=== PATIENT | female | born 1980 | race Caucasian/White ===

== ENCOUNTER → 2023-09-16 11:30 | Outpatient (BNVA) | payer MEDICAID, SELFPAY | PROVIDERS: Visit Provider Obstetrics & Gynecology | DX: Z01.419 Encounter for gynecological examination (general) (routine) without abnormal findings (principal); N92.1 Excessive and frequent menstruation with irregular cycle | CPT/HCPCS: 80053; 84443; 85025; 87624 ==

== ENCOUNTER → 2023-10-02 10:08 | Outpatient (BNVA) | payer MEDICAID, SELFPAY | PROVIDERS: Visit Provider Obstetrics & Gynecology | DX: N92.0 Excessive and frequent menstruation with regular cycle (principal) | CPT/HCPCS: 76830 ==

== ENCOUNTER → 2023-10-20 08:44 | Outpatient (BNVA) | payer MEDICAID, SELFPAY | PROVIDERS: Visit Provider Obstetrics & Gynecology | DX: N93.9 Abnormal uterine and vaginal bleeding, unspecified (principal) | CPT/HCPCS: 81025; 88305 ==

== ENCOUNTER 2023-11-20 05:46 | Day surgery (SDC) | payer MEDICAID, SELFPAY ==
[2023-11-20] VITALS (10 sets, daily range): BP systolic 148–192; BP diastolic 88–104; PULSE 74–86; RESP 12–21; TEMP 36.2–36.5; O2SAT 92–98; BMI 31.8
--- NOTE | 2023-11-20 03:49 | W.PM.OPSFHP ---
Same Day Surgery H&P Indication for Procedure/HPI DATE OF PROCEDURE: November 20, 2023 CHIEF COMPLAINT/INDICATIONFOR SURGICAL PROCEDURE: 43 y.o. 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 h/o BTL began to have irregular, heavy bleeding August 2023 also with RODNEY II on cervical biopsy done for abnormal pap smear Medications/Allergies* Home Medications Medication Instructions Recorded Confirmed Type norethindrone 0.5 mg-ethinyl 1 tab PO DAILY 09/16/23 11/19/23 History estradiol 35 mcg tablet (Necon) Allergies/Adverse Reactions Allergy/AdvReac Type Severity Reaction Status Date / Time No Known Allergies Allergy Verified 11/19/23 11:30 Pertinent History/Comorbid Conditions* Family History (Updated 09/16/23 @ 09:30 by Wendy More LPN) Colon cancer Grandmother Hypertension Grandmother Mother Thyroid disease Mother Denies family history of Ovarian cancer Prostate cancer Diabetes Heart disease Breast cancer Uterine cancer Stroke Social History Smoking and tobacco/nicotine status: current every day tobacco/nicotine user Pertinent Exam Findings alert, oriented x 3, clear to auscultation bilaterally and regular rate & rhythm Pertinent Data Pelvic sono 10-02-23 normal uterus Endometrium 2.6 cm, heterogeneous Normal ovaries Recommendations Surgery/Procedure today Coding Level of Care Code Acute Code for Chg Fwd Time Spent (min) 20
--- NOTE | 2023-11-20 06:15 | W.PM.OPSUD ---
Surgery/Procedure H&P Update DATE OF PROCEDURE: November 20, 2023 DATE H&P PERFORMED: 11/04/23 H&P UPDATE INFORMATION: I have reviewed H&P completed within last 30 days, I have examined patient prior to procedure and No changes to prior documentation PREOP DIAGNOSIS: abnormal uterine bleeding; cervical dysplasia PLANNED PROCEDURE: Operation Date: 11/20/23 07:00 Proposed Procedures p Hysteroscopy Hysteroscopy w/ Endometrial Sampling 31580, 89234, N93.9, N87.9(Not Applicable) - Sanjeev Ramirez MD s Poylpectomy(Not Applicable) - Sanjeev Ramirez MD s Cervical Conization(Not Applicable) - Sanjeev Ramirez MD
[2023-11-20] MEDS: sodium chloride 0.9% 1,000 ML 30 ML IV (06:28)
[2023-11-20 06:34] LABS: OR HCG Qualitative Urine Negative (Negative)
--- NOTE | 2023-11-20 06:50 | ANES.PREANE2 ---
Pre-Anesthetic Assessment Height/Weight: Height 1.6 m Weight 81.647 kg Temp Pulse Resp BP Pulse Ox O2 Del Method 97.1 F L 77 17 153/88 98 Room Air 11/20/23 06:10 11/20/23 06:10 11/20/23 06:10 11/20/23 06:10 11/20/23 06:10 11/20/23 06:10 Preop Diagnosis: abnormal uterine bleeding; cervical dysplasia Operation Date: 11/20/23 07:00 Proposed Procedures p Hysteroscopy Hysteroscopy w/ Endometrial Sampling 98778, 86883, N93.9, N87.9(Not Applicable) - Sanjeev Ramirez MD s Poylpectomy(Not Applicable) - Sanjeev Ramirez MD s Cervical Conization(Not Applicable) - Sanjeev Ramirez MD Familial anesthetic complications: None Was Beta Fatoumata taken within 24 hours: N/A Was Clonidine taken within 24 hours: N/A Last intake: Intake Last Liquid Date 11/19/23 Last Liquid Time 19:00 Last Solid Date 11/19/23 Last Solid Time 19:00 Social Tobacco and No alcohol Exam alert, oriented x 3, clear to auscultation bilaterally and regular rate & rhythm Airway Mallampati: Class II Dentition: false Anesthetic Plan ASA status: 1 Anesthesia: General Risk of > 500 ml blood loss (7ml/kg in children): No Medications/Allergies Home Medications Medication Instructions Recorded Confirmed Last Taken Type norethindrone 0.5 mg-ethinyl 1 tab PO DAILY 09/16/23 11/19/23 11/19/23 History estradiol 35 mcg tablet (Necon) Allergies Allergy/AdvReac Type Severity Reaction Status Date / Time No Known Allergies Allergy Verified 11/19/23 11:30 Current Medications Generic Name Dose Route Start Last Admin Trade Name Freq PRN Reason Stop Dose Admin Sodium Chloride 1,000 mls @ 30 mls/hr 11/20/23 06:00 11/20/23 06:28 Sodium Chloride 0.9% IV 11/21/23 05:59 30 mls/hr .Q24H CHAZ Administration PFSH Anesthesia Family History Grandmother Colon cancer Hypertension Mother Hypertension Thyroid disease Denies family history of Ovarian cancer Prostate cancer Diabetes Heart disease Breast cancer Uterine cancer Stroke Social History Smoking and tobacco/nicotine status: current every day tobacco/nicotine user Data Anesthesia Cardiac Studies: No Data to Display
[2023-11-20] MEDS: vasopressin 20 unit/mL INJ INJECTION (07:23)
--- NOTE | 2023-11-20 07:29 | SUR.OPER ---
[employer]'s solution lot [id number] 05/01/[address] Ramirez to cervix.
--- NOTE | 2023-11-20 08:35 | PM.OP ---
Operative Report Date of procedure: November 20, 2023 Pre-op diagnosis: abnormal uterine bleeding abnormal pap Post-op diagnosis: same Post-op findings: uterus sounded to 8 cm Endometrial cavity normal Minimal endometrial tissue No polyps or fibroids Procedure done: hysteroscopy Curettage of uterus Electrosurgical loop excision of the cervix Implants: none Specimens removed/disposition: endometrial tissue cervical tissue Surgeon: Sanjeev Ramirez MD Anesthesia: MAC Estimated blood loss (mL): 5 Complications: none Findings: uterus sounded to 8 cm Endometrial cavity normal Minimal endometrial tissue No polyps or fibroids Condition: stable Disposition: PACU Brief History: 43 y.o. with abnormal uterine bleeding and abnormal pap Procedure: Informed consent signed. Patient was taken to the operating room. Anesthesia was induced. Patient was placed in dorsolithotomy position, prepped and draped for hysteroscopy. A bivalve speculum was placed in the vagina. The anterior lip of the cervix was grasped with a sharp-toothed tenaculum. The cervix was serially dilated with Hegar dilators. A hysteroscope was placed into the endometrial cavity. The endometrial cavity was seen to be normal. There were no polyps or fibroids. There was small amount of endometrial tissue. The hysteroscope was then removed. Endometrial curettage was done with a sharp curette. Endometrial tissue was sent to pathology. The cervix was then infiltrated at the cervicovaginal junction with 20 U of vasopressin to decrease bleeding. Electrosurgical loop excision of the cervix was done to a depth of approximately 5 mm. No bleeding was seen. Excellent hemostasis was noted. All instruments were then removed. The patient was placed supine, awakened, and taken to the recovery room. Postoperative condition: stable EBL: 5 cc Complications: none Sponge and instrument counts were correct x two
[2023-11-20] MEDS: acetaminophen 500 mg Tablet PO (08:44)
--- NOTE | 2023-11-20 08:55 | ANE.PACU2 ---
Inpatient post-anesthesia follow up: Airway intact: Yes Vital signs: Temperature 97.5 F Pulse Rate 74 Respiratory Rate 18 Blood Pressure 148/98 Pulse Oximetry 95 Oxygen Delivery Me thod Room Air Oxygen Flow Rate Fraction of Inspir ed Oxygen Hydration adequate: Yes Nausea and vomiting: No Pain level: 1 Mental status: Baseline
== END 2023-11-20 08:55 | disposition home or self-care (01) ==
PROVIDERS: Anesthesiology; Visit Provider Obstetrics & Gynecology
PROC: 0UJD8ZZ Inspection of Uterus and Cervix, Via Natural or Artificial Opening Endoscopic (ICD-10-PCS; CPT 58555; principal; 2023-11-20 07:00)
PROC: (CPT 57522; 2023-11-20 07:00)
PROC: 0UBC7ZZ Excision of Cervix, Via Natural or Artificial Opening (ICD-10-PCS; CPT 57520; 2023-11-20 07:00)
DX: N93.9 Abnormal uterine and vaginal bleeding, unspecified (principal); F17.200 Nicotine dependence, unspecified, uncomplicated
CPT/HCPCS: 57522; 58558; 81025; 88305; J1100; J1885; J2250; J2405; J2704; J3010; J3490; J7030

== ENCOUNTER → 2023-11-24 14:45 | Outpatient (BNVA) | payer MEDICAID, SELFPAY | PROVIDERS: Visit Provider Obstetrics & Gynecology | DX: R11.0 Nausea (principal); R42 Dizziness and giddiness | CPT/HCPCS: 80053; 85025 ==

== ENCOUNTER → 2024-08-03 15:00 | Outpatient (BNVA) | payer MEDICAID, SELFPAY | PROVIDERS: Visit Provider Dermatology | DX: L72.0 Epidermal cyst (principal) | CPT/HCPCS: 87070; 87075; 87077; 87186; 87205 ==